=== PATIENT | male | born 1990 | race Caucasian/White ===

== ENCOUNTER → 2020-05-06 13:39 | Outpatient (CLI) | payer OTHER, SELFPAY ==
[2020-05-06 14:12] LABS: COVID19 -Nasal RAPID POSITIVE (Negative)
== END ==
PROVIDERS: Referring Provider Nurse Practitioner; Visit Provider Nurse Practitioner
DX: U07.1 COVID-19 (principal)
CPT/HCPCS: 87635

== ENCOUNTER → 2020-05-17 09:55 | Outpatient (CLI) | payer OTHER, SELFPAY ==
[2020-05-17 11:43] LABS: COVID19 -Nasal RAPID Negative (Negative)
== END ==
PROVIDERS: Visit Provider Physician Assistant
DX: Z20.822 Contact with and (suspected) exposure to COVID-19 (principal)
CPT/HCPCS: 87635